=== PATIENT | female | born 1980 ===

== ENCOUNTER 2018-04-25 16:10 | Inpatient (IN) | payer MEDICARE ==
[~2018-04-25] VITALS: Ht 165.1 cm; Wt 56.7 kg
[2018-04-25 16:20] VITALS: BP_SYST 118; BP_SYST 123; BP_DIAS 73; BP_DIAS 74
[2018-04-25] MEDS ORDERED: KADIAN20 M1 PO (16:26)
[2018-04-25] MEDS ORDERED: OXICODONE (16:26)
[2018-04-25] MEDS ORDERED: GABAPENTIN300 MG ORAL (16:26)
[2018-04-25] MEDS ORDERED: PAMELOR10 MG ORAL (16:26)
[2018-04-25] MEDS ORDERED: Sodium Chloride 500ML 500 ML IV ONE (16:42)
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
[2018-04-25 17:19] LABS: BASOPHILS % (AUTO) 1.8 % (0.0-2.0); EOSINOPHILS % (AUTO) 2.1 % (0.0-3.0); HEMATOCRIT 40.1 % (37.0-47.0); HEMOGLOBIN 13.3 G/DL (12.0-16.0); LYMPHOCYTES % (AUTO) 22.4 % (20.0-45.0); MEAN CORPUSCULAR VOLUME 89 FL (80-99); MONOCYTES % (AUTO) 7.2 % (1.0-10.0); NEUTROPHILS % (AUTO) 66.5 % (45.0-75.0); PLATELET COUNT 313 K/UL (150-450); RED BLOOD COUNT 4.51 M/UL (4.20-5.40); RED CELL DISTRIBUTION WIDTH 12.6 % (11.6-14.8); WHITE BLOOD COUNT 8.5 K/UL (4.8-10.8)
[2018-04-25 17:24] LABS: ANION GAP 12 mmol/L (5-15); BLOOD UREA NITROGEN 12 mg/dL (7-18); CALCIUM 9.2 MG/DL (8.5-10.1); CARBON DIOXIDE 24 MMOL/L (21-32); CHLORIDE 103 MMOL/L (98-107); CREATININE 1.1 MG/DL (0.55-1.30); POTASSIUM 3.4 MMOL/L (3.5-5.1); SODIUM 139 MMOL/L (136-145)
[2018-04-25 17:38] LABS: ALANINE AMINOTRANSFERASE 24 U/L (12-78); ALBUMIN 3.8 G/DL (3.4-5.0); ALBUMIN/GLOBULIN RATIO 1.1 (1.0-2.7); ALKALINE PHOSPHATASE 75 U/L (46-116); ASPARTATE AMINO TRANSFERASE 26 U/L (15-37); BILIRUBIN,TOTAL 0.3 MG/DL (0.2-1.0); CKMB 1.9 NG/ML (0.0-3.6); CREATINE KINASE 339 U/L (26-308)
[2018-04-25] MEDS ORDERED: PRILOSEC OTC20 MG ORAL ×2 (18:08)
[2018-04-25] MEDS ORDERED: OXYCODONE HCL10 MG ORAL (18:08)
[2018-04-25] MEDS ORDERED: ADVIL200 M2 ORAL (18:08)
[2018-04-25 18:23] VITALS: BP_SYST 115; BP_SYST 118; BP_DIAS 72; BP_DIAS 74
[2018-04-25] MEDS ORDERED: Morphine Sulfate 4mg/ml Inj (IV/IM USE ONLY) IVP ONE (18:30)
[2018-04-25 20:00] VITALS: BP_SYST 119; BP_SYST 143; BP_DIAS 82; BP_DIAS 90
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
[2018-04-25] MEDS ORDERED: HYDROmorphone 1mg/ml Carpuject IM PRN (21:00)
[2018-04-25] MEDS: Nortriptyline 10mg cap ORAL SCH (21:55)
[2018-04-25] MEDS ORDERED: HYDROmorphone 1mg/ml Carpuject IVPB PRN (22:30)
[2018-04-26] VITALS (13 sets, daily range): BP systolic 97–146; BP diastolic 61–93
[2018-04-26] MEDS: oxyCODONE 15mg IR tab ORAL PRN ×2 (02:21→06:38)
[2018-04-26] MEDS ORDERED: HYDROMORPHONE IVPB PRN (02:45)
[2018-04-26] MEDS ORDERED: NS IVPB PRN (02:45)
[2018-04-26] MEDS ORDERED: Hydromorphone 0.5mg/0.5ml inj IVP PRN (08:35)
[2018-04-26] MEDS: Hydromorphone 0.5mg/0.5ml inj IVP PRN ×4 (08:43→22:56)
--- NOTE | 2018-04-26 08:44 | Diagnostic Imaging Report ---
Indication: Pain status post trauma Technique: CT left knee was performed utilizing automated exposure control without intravenous contrast material. Axial, sagittal and coronal images were generated. CT dose: Total DLP 406.59 mGycm; CTDI vol 15.26 mGy Comparison: None Findings: Bony mineralization within normal limits. Acute, mildly comminuted and minimally depressed fracture of the lateral tibial plateau. Degree of depression is less than 4 mm. No additional acute fracture identified. Anatomic alignment is maintained. There is a small joint effusion. A small flabella is noted. IMPRESSION: Acute, comminuted and minimally depressed lateral tibial plateau fracture as above. This corresponds with the statrad preliminary report. The CT scanner at [facility] is accredited by the [employer] and the scans are performed using protocols designed to limit radiation exposure to as low as reasonably achievable to attain images of sufficient resolution adequate for diagnostic evaluation.
[2018-04-26] MEDS ORDERED: MS Contin 15mg tab ORAL SCH ×2 (09:00)
--- NOTE | 2018-04-26 14:22 | General Progress Note ---
Assessment/Plan Status Narrative tibial plateu fracture left knee left foot has partial dorsiflexion to surgery and will follow Subjective Date patient seen: Apr 26, 2018 Time patient seen: 14:20 Constitutional: Reports: no symptoms HEENT: Reports: no symptoms Cardiovascular: Reports: no symptoms Respiratory: Reports: no symptoms Allergies: Coded Allergies: FLUCONAZOLE (Verified Allergy, Unknown, 04/25/18) Objective Last 24 Hour Vital Signs Date Time Temp Pulse Resp B/P (MAP) Pulse Ox O2 Delivery O2 Flow Rate FiO2 04/26/18 12:23 98.5 04/26/18 12:00 98.5 77 20 134/66 (88) 99 04/26/18 09:00 Room Air 04/26/18 08:00 98.1 72 20 118/68 (85) 96 04/26/18 04:00 98.1 68 18 97/63 (74) 98 04/26/18 00:00 97.6 80 16 134/83 (100) 98 04/25/18 22:37 Room Air 04/25/18 22:21 Room Air 04/25/18 20:00 98.5 74 17 119/82 100 Room Air 04/25/18 20:00 98.9 74 16 143/90 (107) 100 04/25/18 20:00 98.5 82 17 119/82 100 Room Air 04/25/18 18:23 79 15 118/74 100 Room Air 04/25/18 16:20 97.5 102 15 123/73 100 Room Air 04/25/18 16:15 97.5 102 18 123/73 98 Room Air Intake and Output 04/25/18 04/26/18 19:00 07:00 Intake Total 500 ml Balance 500 ml IV Total 500 ml # Voids 1 Laboratory Tests 04/25/18 16:50: White Blood Count 8.5, Red Blood Count 4.51, Hemoglobin 13.3, Hematocrit 40.1, Mean Corpuscular Volume 89, Mean Corpuscular Hemoglobin 29.6, Mean Corpuscular Hemoglobin Concent 33.2, Red Cell Distribution Width 12.6, Platelet Count 313, Mean Platelet Volume 7.0, Neutrophils (%) (Auto) 66.5, Lymphocytes (%) (Auto) 22.4, Monocytes (%) (Auto) 7.2, Eosinophils (%) (Auto) 2.1, Basophils (%) (Auto ) 1.8, Prothrombin Time 10.8, Prothromb Time International Ratio 1.0, Activated Partial Thromboplast Time 27, Urine HCG, Qualitative Negative, Sodium Level 139 , Potassium Level 3.4L, Chloride Level 103, Carbon Dioxide Level 24, Anion Gap 12, Blood Urea Nitrogen 12, Creatinine 1.1, Estimat Glomerular Filtration Rate 55.6, Glucose Level 164H, Calcium Level 9.2, Total Bilirubin 0.3, Aspartate Amino Transf (AST/SGOT) 26, Alanine Aminotransferase (ALT/SGPT) 24, Alkaline Phosphatase 75, Total Creatine Kinase 339H, Creatine Kinase MB 1.9, Creatine Kinase MB Relative Index 0.5, Total Protein 7.2, Albumin 3.8, Globulin 3.4, Albumin/Globulin Ratio 1.1 Height (Feet): 5 Height (Inches): 5.00 Weight (Pounds): 125 General Appearance: WD/WN Neck: non-tender Cardiovascular: no JVD Respiratory/Chest: lungs clear Abdomen: soft Extremities: other - left foot unable to fully dorsiflex. Dusty Bonilla MD Apr 26, 2018 14:22
[2018-04-26] MEDS ORDERED: Tubing IV Secondary IV ONE (15:19)
[2018-04-26 15:20] LABS: ANION GAP 11 mmol/L (5-15); BLOOD UREA NITROGEN 8 mg/dL (7-18); CALCIUM 9.5 MG/DL (8.5-10.1); CARBON DIOXIDE 25 MMOL/L (21-32); CHLORIDE 108 MMOL/L (98-107); CREATININE 0.8 MG/DL (0.55-1.30); POTASSIUM 4.9 MMOL/L (3.5-5.1); SODIUM 144 MMOL/L (136-145)
[2018-04-26] MEDS ORDERED: Propofol 200mg/20ml IV ONE (16:38)
[2018-04-26] MEDS ORDERED: Ketorolac 30mg Inj ONE (16:50)
[2018-04-26] MEDS ORDERED: Lidocaine 1% MPF 10mg/ml 5ml ONE (16:50)
[2018-04-26] MEDS ORDERED: Midazolam 2mg/2ml Inj ONE (17:34)
[2018-04-26] MEDS ORDERED: fentaNYL 100 mcg/2 mL IV ONE (17:34)
[2018-04-26] MEDS ORDERED: Ropivacaine 5mg/ml Vial 30ml INJ ONE (18:24)
[2018-04-26] MEDS ORDERED: Sterile Water Irrig 1000ml IRRIG ONE (19:00)
[2018-04-26] MEDS ORDERED: NS Irrig 4000ml IRRIG ONE ×2 (19:00→19:38)
[2018-04-26] MEDS ORDERED: LR 1000ml ONE (19:00)
[2018-04-26] MEDS ORDERED: Norco 5mg/325mg tab ORAL PRN (19:15)
[2018-04-26] MEDS ORDERED: D5 1/2NS 1,000 ML IV SCH (19:15)
[2018-04-26] MEDS ORDERED: Hydromorphone 0.5mg/0.5ml inj SUBQ PRN (19:15)
--- NOTE | 2018-04-26 19:16 | Operative Note - PDOC ---
Operative Note Operative Note Pre-op Diagnosis: left tibial plateau fracture Procedure: see op report Post-op Diagnosis: same as pre-op plus Operative Findings: consistent w/pre-op dx studies Anesthesia: regional Specimen: none Complications: none Condition: stable Estimated Blood Loss: none Implant(s) used?: Yes Ricky Casas MD Apr 26, 2018 19:16
--- NOTE | 2018-04-26 19:16 | Pre-Procedure Note/Attestation ---
Pre-Procedure Note/Attestation Complete Prior to Procedure Planned Procedure: left Procedure Narrative: arthroscopic orif tibial plateau Indications for Procedure Pre-Operative Diagnosis: left tibial plateau fracture Attestation I attest that I discussed the nature of the procedure; its benefits; risks and complications; and alternatives (and the risks and benefits of such alternatives ), prior to the procedure, with the patient (or the patient's legal direct customer service representative). I attest that, if there was a reasonable possibility of needing a blood transfusion, the patient (or the patient's legal direct customer service representative) was given the [facility] standardized written summary, pursuant to the [employer] Blood Safety Act ([place] Health and Safety Code # 1645, as amended). I attest that I re-evaluated the patient just prior to the surgery and that there has been no change in the patient's H&P, except as documented below: Ricky Casas MD Apr 26, 2018 19:16
[2018-04-26] MEDS ORDERED: LR 1000ml 1,000 ML IVLG SCH (19:47)
--- NOTE | 2018-04-26 19:47 | Anethesia Preoperative Eval ---
Anesthesia Pre-op PMH/ROS General Date of Evaluation: Apr 26, 2018 Time of Evaluation: 18:50 Anesthesiologist: Jasson ASA Score: ASA 2 Mallampati Score Class I : Soft palate, uvula, fauces, pillars visible Class II: Soft palate, uvula, fauces visible Class III: Soft palate, base of uvula visible Class IV: Only hard plate visible Mallampati Classification: Class II Surgeon: Augusto Diagnosis: L tibial plato Fx Surgical Procedure: L knee scope. ORIF of tiibiial Fx Anesthesia History: none Social History: current smoker Family History: no anesthesia problems Allergies: Coded Allergies: FLUCONAZOLE (Verified Allergy, Unknown, 04/25/18) Patient NPO?: Yes NPO Date: Apr 26, 2018 NPO Time: 0000 Past Medical History Cardiovascular: Denies: HTN, CAD, [place], valve dz, arrhythmia, other Pulmonary: Denies: asthma, COPD, ISIDRO, other Gastrointestinal/Genitourinary: Reports: GERD - mild; Denies: CRI, ESRD, other Neurologic/Psychiatric: Reports: depression/anxiety; Denies: dementia, CVA, TIA, other Endocrine: Denies: DM, hypothyroidism, steroids, other HEENT: Denies: cataract (L), cataract (R), glaucoma, [place] (L), [place] (R), other Hematology/Immune: Denies: anemia, DVT, bleeding disorder, other Musculoskeletal/Integumentary: Denies: OA, RA, DJD, DDD, edema, other PMH Narrative: as above PSxH Narrative: Wrist Fx ORIF Anesthesia Pre-op Phys. Exam Physician Exam Last Vital Signs Date Time Temp Pulse Resp B/P (MAP) Pulse Ox O2 Delivery O2 Flow Rate FiO2 04/26/18 16:06 98.5 04/26/18 15:53 71 20 143/69 (93) 99 04/26/18 09:00 Room Air Constitutional: NAD Neurologic: CN 2-12 intact Cardiovascular: RRR, no M/R/G Respiratory: CTA Gastrointestinal: S/NT/ND Airway Exam Mallampati Score: Class II MO: full Neck: flexible ROM: full Teeth: intact Dentures: no upper, no lower Anesthesia Pre-op A/P Labs Chemistry Test 04/26/18 14:15 Sodium Level 144 MMOL/L (136-145) Potassium Level 4.9 MMOL/L (3.5-5.1) Chloride Level 108 MMOL/L (98-107) H Carbon Dioxide Level 25 MMOL/L (21-32) Anion Gap 11 mmol/L (5-15) Blood Urea Nitrogen 8 mg/dL (7-18) Creatinine 0.8 MG/DL (0.55-1.30) Estimat Glomerular Filtration Rate > 60 mL/min (>60) Glucose Level 97 MG/DL (74-106) Calcium Level 9.5 MG/DL (8.5-10.1) Risk Assessment & Plan Assessment: ASA 2 Plan: GA with LMA L femoral nerve block for postop pain control Status Change Before Surgery: No Pre-Antibiotics Drug: Ancef 1 gr. Given Within 1 Hr of Incision: Yes Time Given: 19:29 Marlo Rausch MD Apr 26, 2018 19:47
[2018-04-26] MEDS ORDERED: Sodium Chloride 10ml vial INJ ONE (19:51)
[2018-04-26] MEDS ORDERED: Morphine Sulfate 10mg/ml Inj ONE (19:51)
[2018-04-26] MEDS ORDERED: fentaNYL 100 mcg/2 mL IV PRN (20:00)
[2018-04-26] MEDS ORDERED: DiphenhydrAMINE 50mg/ml Inj IVP PRN (20:00)
[2018-04-26] MEDS ORDERED: Ketorolac 30mg Inj IV PRN (20:00)
[2018-04-26] MEDS ORDERED: Metoclopramide 10mg/2ml Inj IVP PRN (20:00)
[2018-04-26] MEDS ORDERED: Meperidine 50mg/ml Inj(FOR RIGORS ONLY) IV PRN (20:00)
[2018-04-26] MEDS: Nortriptyline 10mg cap ORAL SCH (21:00)
[2018-04-26] MEDS: Midazolam 2mg/2ml Inj IVP PRN ×2 (21:32→21:50)
--- NOTE | 2018-04-26 21:35 | Immediate Post-Op Evaluation ---
Immediate Post-Op Evalulation Immediate Post-Op Evalulation Procedure: Arthyroscopic assysted L tibial plato fx ORIF Date of Evaluation: Apr 26, 2018 Time of Evaluation: 21:34 IV Fluids: 1100 Blood Products: none Estimated Blood Loss: min Urinary Output: none Blood Pressure Systolic: 119 Blood Pressure Diastolic: 67 Pulse Rate: 74 Respiratory Rate: 20 O2 Sat by Pulse Oximetry: 99 Temperature (Fahrenheit): 97.6 Pain Score (1-10): 2 Nausea: No Vomiting: No Complications none Patient Status: awake, patent, none Hydration Status: adequate Marlo Rausch MD Apr 26, 2018 21:35
--- NOTE | 2018-04-26 22:15 | Consultation ---
DATE OF CONSULTATION: 04/26/2018 ORTHOPEDIC CONSULTATION HISTORY OF PRESENT ILLNESS: The patient was seen in my office on 04/25/2018 with a depressed lateral tibial plateau fracture. She was sent to the ER for admission and operative fixation given her age and activity level. PAST MEDICAL HISTORY: Reviewed per intake chart. SURGICAL HISTORY: Reviewed per intake chart. MEDICATION: Reviewed per intake chart. PHYSICAL EXAMINATION: GENERAL: The patient is alert and oriented. She has moderate discomfort in the left knee. NEUROVASCULAR: Normal. Slight weakness on dorsiflexion of the ankle as well as with ankle eversion. DIAGNOSTIC DATA: CT scan of the left knee shows a depressed tibial plateau fracture with approximately 3 to 4 mm of articular incongruity. This was displaced tibial plateau fracture. DISCUSSION: At this point, given her age and the fact that the fragment is depressed more than 2 mm, I think it is reasonable to proceed with open reduction and internal fixation. Risks, limitations, expectations, and complications related to the procedure were discussed in detail. At this point, what we are going to do is consider arthroscopy with the retrograde elevation of the articular fragment with backfilling the metaphyseal defect with bone graft and provide additional metaphyseal support using possible plate fixation versus screw fixation. She will be maintained NPO. She has been medically cleared to proceed with surgery by Dr. Bonilla. Alternatives were discussed in detail as well. Ricky Casas M.D. DR: BECKY JOB#: [id number] CC:
[2018-04-26] MEDS: ceFAZolin sod 1 GM in D5W 55 ML IV SCH (22:55)
--- NOTE | 2018-04-26 23:30 | Operative Note - Dictated ---
DATE OF OPERATION: 04/26/2018 PREOPERATIVE DIAGNOSIS: Left depressed tibial plateau fracture (Schatzker 3 tibial plateau fracture). POSTOPERATIVE DIAGNOSES: 1. Left depressed lateral tibial plateau fracture (Schatzker 3). 2. Left knee lateral meniscus tear. 3. Left knee lateral compartment chondral damage, 4 x 4 mm, grade 2, lateral femoral condyle. 4. Grade 1 chondral damage, lateral tibial plateau. PROCEDURE: 1. Left knee diagnostic arthroscopy. 2. Partial lateral meniscectomy. 3. Synovectomy of medial, lateral, and patellofemoral compartment. 4. Open reduction and internal fixation of depressed lateral tibial plateau fracture with calcium phosphate augmentation and peripheral screw fixation. SURGEON: Ricky Casas M.D. ANESTHESIA: general/sciatic. INDICATION FOR PROCEDURE: This is a pleasant female, who approximately two and a half weeks ago sustained a direct injury to the left knee and was diagnosed with a depressed lateral tibial plateau fracture with depression of the articular margin to about 3-4 mm. Given her young age, it was felt that a reasonable attempt to perform arthroscopic ORIF of the depressed fracture fragment was reasonable. Risks, limitations, expectations, and complications of the procedure were discussed in detail including nerve or vessel damage, infection, risk of anesthesia, DVT, PE, mortality risk, possibility of requiring further surgery including removal of the hardware, implant failure, complex regional pain syndrome. All questions were addressed. The patient was appropriately consented and understood risks, limitations, and expectations very clearly including the potential outcomes of surgery that was recommended. DESCRIPTION OF PROCEDURE: After informed consent was obtained, the patient was brought to the operating room where the patient was placed under sciatic block. Tourniquet was applied to the left proximal thigh. Left leg was prepped and draped in sterile manner. Time-out was performed. Examination under anesthesia showed increased valgus instability and slight flexion consistent with depressed tibial plateau fracture. The camera was then positioned through the anterior and lateral portal. Diagnostic arthroscopy of the knee was performed. There was some hypertrophic fat pad and synovial tissue in the patellofemoral compartment extending into the medial compartment. There was no chondral damage in the patellofemoral compartment. Medial gutter was free of loose bodies. Medial compartment was entered and was free from meniscal and chondral damage. Hypertrophic synovial tissue and fat pad was removed to better visualize the anterior compartment, the medial compartment as well as intercondylar notch and lateral compartment. The ACL was probed. The knee was placed in figure-of-4 position and the lateral compartment was entered. At this point, the area of the fracture was well visualized. This area was consistent with the anterolateral depressed fragment that was confirmed on CT scan. At the joint space, there was a small tear of the middle body of the lateral meniscus. There was also chondral that measured 4 x 4 mm in the posterior femoral condyle. At this point, a partial lateral meniscectomy was performed. The fracture site was further evaluated. The CT scan showed a depressed fragment. Lateral cortex appeared to be relatively intact and therefore given the depressed articular margin, it was felt that a retrograde elevation of the articular cartilage was reasonable. Therefore, using an ACL guide, a guidewire was placed in the area of the depressed fragment. Anteromedial stab incision was then made. Once AP and lateral imaging confirmed adequate positioning of the guidewire, the cortical was breached with a 7 mm drill. This was advanced in the subchondral bone and care not to penetrate the articular margin. Once this was done, the bone tamps were then used to elevate the fragment. Once appropriate elevation was confirmed, using radiographs as well as the arthroscopy, the void that was created by the bone tamps was filled with calcium cement. The camera was then repositioned in the knee joint to make sure that there was no extravasation of the cement through the fracture site. Once that was completed, the percutaneous guidewire was placed into the depressed fracture fragment. Once adequate position was confirmed on AP and lateral imaging, a 36 mm fully-threaded cancellous screw was then placed to provide some further subchondral support. Camera was then repositioned in the knee joint to make sure that there was no penetrance of the screw into the joint, which was not visible. It was felt that the implant was hugging the subchondral bone. It would aid in further stabilization and stability of the knee. At this point, AP and lateral imaging showed good positioning of the implant. At this point, the instruments were removed. Portal sites were closed using Monocryl and Steri-Strips, and a sterile dressing was applied. The patient was awoken and taken to recovery room with stable vital signs. ESTIMATED BLOOD LOSS: None. COMPLICATIONS: None. SPECIMENS: None. IMPLANTS: 1. Include 5 mL of HydroSet. 2. A 36 x 5 fully-threaded cancellous bone screw. Ricky Casas M.D. DR: Gisel JOB#: [id number] CC: ROBERT
[2018-04-27] VITALS (8 sets, daily range): BP systolic 111–140; BP diastolic 66–79
[2018-04-27] MEDS: oxyCODONE 15mg IR tab ORAL PRN ×6 (01:01→22:42)
[2018-04-27] MEDS: Hydromorphone 0.5mg/0.5ml inj IVP PRN ×6 (03:09→19:48)
[2018-04-27] MEDS: ceFAZolin sod 1 GM in D5W 55 ML IV SCH ×2 (05:09→14:18)
--- NOTE | 2018-04-27 08:48 | 48 Hour Post Anesthesia Eval ---
Post Anesthesia Evaluation Procedure: Arthyroscopic assysted L tibial plato fx ORIF Date of Evaluation: Apr 27, 2018 Time of Evaluation: 07:32 Blood Pressure Systolic: 123 0: 75 Pulse Rate: 69 Respiratory Rate: 18 Temperature (Fahrenheit): 98.5 O2 Sat by Pulse Oximetry: 97 Airway: patent Nausea: No Vomiting: No Pain Intensity: 2 Hydration Status: adequate Cardiopulmonary Status: Stable Mental Status/LOC: patient returned to baseline Follow-up Care/Observations: 0 Post-Anesthesia Complications: 0 Follow-up care needed: N/A James Mason MD Apr 27, 2018 08:48
[2018-04-27] MEDS: Docusate 100mg cap ORAL SCH ×3 (08:53→18:30)
[2018-04-27] MEDS ORDERED: D5 1/2NS 1000ml IV ONE (11:03)
[2018-04-27] MEDS ORDERED: Tubing IV Secondary IV ONE (11:03)
--- NOTE | 2018-04-27 11:26 | Diagnostic Imaging Report ---
INDICATION: Pain, intraoperative TECHNIQUE: Intraoperative imaging Fluoroscopy time: 100.8 seconds Total dose: 0.05922 mGym2 Total number of images: 4 COMPARISON: None FINDINGS: Intraoperative images document placement of a surgical nail, subsequent placement of a screw in the proximal tibia. IMPRESSION: Intraoperative imaging, as described
[2018-04-27] MEDS: Nortriptyline 10mg cap ORAL SCH (21:47)
--- NOTE | 2018-04-27 22:23 | General Progress Note ---
Assessment/Plan Status Narrative s/p plate tib fractuer surgery donal and post op decrease dorsifleixon slightly improved pt ot paincontrol dc planning. Subjective Date patient seen: Apr 27, 2018 Time patient seen: 22:22 Allergies: Coded Allergies: FLUCONAZOLE (Verified Allergy, Unknown, 04/25/18) Subjective has a lot o fpain has decrease dorsiflexion no bm Objective Last 24 Hour Vital Signs Date Time Temp Pulse Resp B/P (MAP) Pulse Ox O2 Delivery O2 Flow Rate FiO2 04/27/18 20:30 98.7 86 18 128/78 (95) 96 04/27/18 20:00 98.7 86 18 128/78 (95) 96 04/27/18 15:30 99.1 78 20 115/68 (84) 99 04/27/18 11:51 98.0 71 20 111/79 (90) 99 04/27/18 08:49 69 18 97 04/27/18 08:04 98.2 85 20 111/66 (81) 99 04/27/18 07:57 Room Air 04/27/18 04:00 98.5 69 18 123/75 (91) 97 04/27/18 00:00 98.5 67 18 140/78 (98) 100 04/26/18 22:30 98.2 69 18 142/82 (102) 100 04/26/18 22:29 98.2 Intake and Output 04/26/18 04/27/18 19:00 07:00 Intake Total 235 ml 1505 ml Output Total 20 ml Balance 235 ml 1485 ml Intake Oral 235 ml IV Total 1505 ml Output Estimated Blood Loss 20 ml # Voids 3 nad no jvd cta soft decrease dorsiflexion Height (Feet): 5 Height (Inches): 5.00 Weight (Pounds): 125 Dusty Bonilla MD Apr 27, 2018 22:23
[2018-04-28] VITALS: BP 152/83
[2018-04-28] MEDS: Hydromorphone 0.5mg/0.5ml inj IVP PRN ×4 (02:09→12:15)
[2018-04-28 04:00] VITALS: BP 127/71
[2018-04-28] MEDS: oxyCODONE 15mg IR tab ORAL PRN ×2 (07:46→14:03)
[2018-04-28 08:00] VITALS: BP 109/70
[2018-04-28] MEDS: Docusate 100mg cap ORAL SCH ×2 (08:54→14:03)
[2018-04-28 12:00] VITALS: BP 127/86
--- NOTE | 2018-04-28 13:31 | Discharge Summary ---
Discharge Summary Discharge Summary Discharge Summary DATE OF ADMISSION: DATE OF DISCHARGE: 04/28/2018 REASON FOR HOSPITALIZATION: plateul tib fracure patient was admmited to [facility] had surgery noted to have decrease ability to doriflex the left ankle she will have follow up fo mona with dr mary. SURGERY PERFORMED: 04/26/2018 ORIF Left tibia plateua CONDITION IN THE HOSPITAL:The patient tolerated the surgery without complications. DISCHARGE CONDITION: The patient was stable at discharge. DISCHARGE MEDICATIONS: percocet pr n pain resum prior to admit medicaiotn except the motrin POSTOPERATIVE ORDERS: dc home POSTOPERATIVE FOLLOW UP: The patient will be followed in dr mary office in 2 weeks outside pt per Dusty Warner MD Apr 28, 2018 13:31
== END 2018-04-28 14:51 | disposition home or self-care (01) | DRG 489 ==
LOC: EMR 17:04 → 4E 17:23 → EDBEDREQ 17:31 → 4E 20:33 → 3E 04-26 06:15
PROC: 0SBD4ZZ Excision of Left Knee Joint, Percutaneous Endoscopic Approach (ICD-10-PCS; principal; 2018-04-26 16:00)
PROC: 0QSH04Z Reposition Left Tibia with Internal Fixation Device, Open Approach (ICD-10-PCS; principal; 2018-04-26 16:00)
DX: S82.142A Displaced bicondylar fracture of left tibia, initial encounter for closed fracture (principal); V09.9XXA Pedestrian injured in unspecified transport accident, initial encounter; Z88.8 Allergy status to other drugs, medicaments and biological substances; F17.200 Nicotine dependence, unspecified, uncomplicated; S83.282A Other tear of lateral meniscus, current injury, left knee, initial encounter; M94.8X8 Other specified disorders of cartilage, other site
CPT/HCPCS: 29505; 36415; 76001; 80048; 80053; 81025; 82550; 82553; 85025; 85610; 85730; 93005; 93971; 94003; 94150; 96374; 96375; 99285; J2250; J2405

== ENCOUNTER 2018-08-24 05:12 | Day surgery (SDC) | payer OTHER ==
[~2018-08-24] VITALS: Ht 165.1 cm; Wt 59.0 kg
[2018-08-24] VITALS (8 sets, daily range): BP systolic 98–151; BP diastolic 70–94
[~2018-08-24 05:12] MED LIST: ADVIL200 M2 ORAL; GABAPENTIN300 MG ORAL; KADIAN20 M1 PO; OXICODONE; OXYCODONE HCL10 MG ORAL; PAMELOR10 MG ORAL; PRILOSEC OTC20 MG ORAL
[2018-08-24] MEDS ORDERED: celeBREX 200mg Cap **SURGERY PATIENTS ONLY ORAL ONE (06:00)
[2018-08-24] MEDS ORDERED: ceFAZolin 1gm IVPB IVPB ONE ×2 (06:00)
[2018-08-24] MEDS ORDERED: oxyCONTIN 20mg tab ORAL ONE (06:00)
--- NOTE | 2018-08-24 06:39 | Anethesia Preoperative Eval ---
Anesthesia Pre-op PMH/ROS General Date of Evaluation: Aug 24, 2018 Anesthesiologist: Rony ASA Score: ASA 2 Mallampati Score Class I : Soft palate, uvula, fauces, pillars visible Class II: Soft palate, uvula, fauces visible Class III: Soft palate, base of uvula visible Class IV: Only hard plate visible Mallampati Classification: Class II Surgeon: Augusto Diagnosis: Left knee pain Surgical Procedure: Left knee screw removal Anesthesia History: none Family History: no anesthesia problems Allergies: Coded Allergies: FLUCONAZOLE (Verified Allergy, Unknown, 04/25/18) Medications: see eMAR Patient NPO?: Yes NPO Date: Aug 23, 2018 NPO Time: 22:00 Past Medical History Cardiovascular: Denies: HTN, CAD, RI, valve dz, arrhythmia, other Pulmonary: Denies: asthma, COPD, ISIDRO, other Gastrointestinal/Genitourinary: Denies: GERD, CRI, ESRD, other Neurologic/Psychiatric: Reports: depression/anxiety, other - migraines; Denies: dementia, CVA, TIA Endocrine: Denies: DM, hypothyroidism, steroids, other HEENT: Denies: cataract (L), cataract (R), glaucoma, [place] (L), [place] (R), other Hematology/Immune: Denies: anemia, DVT, bleeding disorder, other Musculoskeletal/Integumentary: Denies: OA, RA, DJD, DDD, edema, other PSxH Narrative: Left knee arthroscopy, left elbow sx, left wrist sx Anesthesia Pre-op Phys. Exam Physician Exam Last Vital Signs Date Time Temp Pulse Resp B/P (MAP) Pulse Ox O2 Delivery O2 Flow Rate FiO2 08/24/18 05:57 Room Air 08/24/18 05:53 98.8 82 18 112/76 97 Constitutional: NAD Cardiovascular: RRR Respiratory: CTA Airway Exam Mallampati Score: Class II MO: full ROM: full Anesthesia Pre-op A/P Labs see chart Urine Test Test 08/24/18 05:20 Urine HCG, Qualitative Negative (NEGATIVE) Risk Assessment & Plan Assessment: ASA II Plan: GA Status Change Before Surgery: No Pre-Antibiotics Drug: Miriam Nunes MD Aug 24, 2018 06:39
[2018-08-24] MEDS ORDERED: LR 1000ml 1,000 ML IVLG SCH (06:41)
[2018-08-24] MEDS ORDERED: Midazolam 2mg/2ml Inj IVP PRN (06:45)
[2018-08-24] MEDS ORDERED: fentaNYL 100 mcg/2 mL IV PRN (06:45)
[2018-08-24] MEDS ORDERED: Ketorolac 30mg Inj IV PRN (06:45)
[2018-08-24] MEDS ORDERED: DiphenhydrAMINE 50mg/ml Inj IVP PRN (06:45)
[2018-08-24] MEDS ORDERED: LORazepam Inj 2mg/ml 1ml IV PRN (06:45)
[2018-08-24] MEDS ORDERED: Hydromorphone 0.5mg/0.5ml inj IVP PRN (06:45)
[2018-08-24] MEDS ORDERED: NeoSporin Gu Irrig 1ml Amp IRRIG ONE (06:55)
[2018-08-24] MEDS ORDERED: Bacitracin 50000 Units Vial ONE (06:55)
[2018-08-24] MEDS ORDERED: Bupivacaine w/Epi 0.5% 30ml Vial INJ ONE (06:55)
[2018-08-24] MEDS ORDERED: Midazolam 2mg/2ml Inj ONE (07:07)
[2018-08-24] MEDS ORDERED: fentaNYL 100 mcg/2 mL IV ONE (07:07)
[2018-08-24] MEDS ORDERED: Propofol 200mg/20ml IV ONE (07:07)
[2018-08-24] MEDS ORDERED: Lidocaine 1% MPF 10mg/ml 5ml ONE (07:07)
[2018-08-24] MEDS ORDERED: LR 1000ml ONE (07:30)
[2018-08-24] MEDS ORDERED: NS Irrig 1000ml ONE (07:30)
--- NOTE | 2018-08-24 07:33 | Pre-Procedure Note/Attestation ---
Pre-Procedure Note/Attestation Complete Prior to Procedure Planned Procedure: left Procedure Narrative: removal of hardware Indications for Procedure Pre-Operative Diagnosis: painful hardware left knee Attestation I attest that I discussed the nature of the procedure; its benefits; risks and complications; and alternatives (and the risks and benefits of such alternatives ), prior to the procedure, with the patient (or the patient's legal credit resolution representative). I attest that, if there was a reasonable possibility of needing a blood transfusion, the patient (or the patient's legal credit resolution representative) was given the [facility] standardized written summary, pursuant to the [place] Blood Safety Act ([place] Health and Safety Code # 1645, as amended). I attest that I re-evaluated the patient just prior to the surgery and that there has been no change in the patient's H&P, except as documented below: Ricky Casas MD Aug 24, 2018 07:33
--- NOTE | 2018-08-24 07:33 | Operative Note - PDOC ---
Operative Note Operative Note Pre-op Diagnosis: painful hardware left knee Procedure: see op report Post-op Diagnosis: same as pre-op plus Operative Findings: consistent w/pre-op dx studies Anesthesia: local Specimen: none Complications: none Condition: stable Estimated Blood Loss: none Implant(s) used?: No Ricky Casas MD Aug 24, 2018 07:33
--- NOTE | 2018-08-24 08:37 | Immediate Post-Op Evaluation ---
Immediate Post-Op Evalulation Immediate Post-Op Evalulation Procedure: Left knee screw removal Date of Evaluation: Aug 24, 2018 Time of Evaluation: 08:39 IV Fluids: 700 Blood Products: 0 Estimated Blood Loss: min Urinary Output: 0 Blood Pressure Systolic: 144 Blood Pressure Diastolic: 96 Pulse Rate: 93 Respiratory Rate: 17 O2 Sat by Pulse Oximetry: 98 Temperature (Fahrenheit): 97 Pain Score (1-10): 0 Nausea: No Vomiting: No Complications 0 Patient Status: awake, reacts, patent, none Hydration Status: adequate Drug: Ancef 1g Given Within 1 Hr of Incision: Yes Miriam Vazquez MD Aug 24, 2018 08:37
--- NOTE | 2018-08-24 08:38 | 48 Hour Post Anesthesia Eval ---
Post Anesthesia Evaluation Procedure: Left knee screw removal Date of Evaluation: Aug 24, 2018 Airway: patent Nausea: No Vomiting: No Pain Intensity: 0 Hydration Status: adequate Cardiopulmonary Status: at baseline Mental Status/LOC: patient returned to baseline Post-Anesthesia Complications: 0 Follow-up care needed: ready to discharge Miriam Vazquez MD Aug 24, 2018 08:38
--- NOTE | 2018-08-24 14:40 | Diagnostic Imaging Report ---
Indication: Left knee pain 2 views of the left knee were obtained. Findings: 2 intraoperative images showing a needle projected over the lateral aspect of the knee joint. There is a single transversely oriented screw projected over the lateral tibial plateau. IMPRESSION: Intraoperative imaging
--- NOTE | 2018-08-24 19:45 | Operative Note - Dictated ---
DATE OF OPERATION: 08/24/2018 PREOPERATIVE DIAGNOSES: 1. Status post left tibial plateau fracture. 2. Left knee painful hardware. POSTOPERATIVE DIAGNOSES: 1. Status post left tibial plateau fracture. 2. Left knee painful hardware. PROCEDURE: Removal of left knee hardware. SURGEON: Ricky Casas M.D. ANESTHESIA: MAC. INDICATION FOR PROCEDURE: The patient is a pleasant 38-year-old female, who underwent open reduction and internal fixation of tibial plateau fracture. Subsequently, she had pain along the hardware. Elected to undergo removal of the hardware. Risks, limitations, expectations, and complications of the procedure were discussed in detail. All questions were addressed. DESCRIPTION OF PROCEDURE: After informed consent was obtained, the patient was brought to the operating room placed under monitored anesthesia control. Left leg was prepped and draped in a sterile manner. Ancef was administered. Time-out was performed. Lateral skin incision was then made. The screw using fluoroscopy once it was identified, the screw was then removed. The wound was copiously irrigated. The IT band, which was over the screw, the screw head was approximately 4 mm prominent and rubbing against the IT band consistent with the location of her pain. The IT band was then repaired along the subcutaneous tissue. The skin was closed using 4-0 Monocryl suture. Steri-Strips and a sterile dressing were applied. The patient was awoken and taken to recovery room with stable vital signs. ESTIMATED BLOOD LOSS: None. COMPLICATIONS: None. SPECIMENS: None. IMPLANTS: None. Ricky Casas M.D. DR: MILAGROS JOB#: [id number] CC: ROBERT
[2018-08-24] MEDS ORDERED: HYDROmorphone 1mg/ml Carpuject SUBQ PRN (20:19)
[2018-08-24] MEDS ORDERED: HYDROcodone/Acetamin 5/325 tab ORAL PRN (20:19)
[2018-08-24] MEDS ORDERED: D5 1/2NS 1,000 ML IV SCH (20:19)
[2018-08-24] MEDS ORDERED: Tylenol #3 tab (300mg/30mg) ORAL PRN (20:20)
== END 2018-08-24 10:05 | disposition home or self-care (01) ==
LOC: SUR 05:12
DX: T85.848A Pain due to other internal prosthetic devices, implants and grafts, initial encounter (principal); F32.9 Major depressive disorder, single episode, unspecified; F41.9 Anxiety disorder, unspecified; Y92.9 Unspecified place or not applicable; Y83.9 Surgical procedure, unspecified as the cause of abnormal reaction of the patient, or of later complication, without mention of misadventure at the time of the procedure; Y79.3 Surgical instruments, materials and orthopedic devices (including sutures) associated with adverse incidents
CPT/HCPCS: 20680; 73560; 76000; 81025; J0690; J1170; J2250; J2704; J3010; 94003; 94150